=== PATIENT | female | born 1970 | race Caucasian/White ===

== ENCOUNTER 2018-02-28 20:00 | Emergency (ER) | payer BC ==
[~2018-02-28] VITALS: Ht 162.6 cm; Wt 88.5 kg
[2018-02-28 20:08] VITALS: BP 166/97
--- NOTE | 2018-02-28 21:23 | PHYS DOC ---
Past History Past Medical History: Asthma Past Surgical History: Smoking: Non-smoker Alcohol Use: None Drug Use: None Adult General Chief Complaint Chief Complaint: ANKLE PROBLEM HPI HPI 7-year-old female presents with right ankle pain. The patient was walking across room at home when she took a wrong step and inverted her ankle. She heard a popping sound and had immediate pain. She's been I will wear weight since that time. She has had rapid swelling over the lateral malleolus. There is no ecchymosis. He denies any other injuries. She has previous fracture to this ankle and sprained ligaments in the past. She denies fever or chills. Review of Systems Review of Systems Constitutional: Denies fever or chills [] Eyes: Denies change in visual acuity, redness, or eye pain [] HENT: Denies nasal congestion or sore throat [] Respiratory: Denies cough or shortness of breath [] Cardiovascular: No additional information not addressed in HPI [] GI: Denies abdominal pain, nausea, vomiting, bloody stools or diarrhea [] : Denies dysuria or hematuria [] Musculoskeletal: Right ankle pain[] Integument: Denies rash or skin lesions [] Neurologic: Denies headache, focal weakness or sensory changes [] Endocrine: Denies polyuria or polydipsia [] All other systems were reviewed and found to be within normal limits, except as documented in this note. Allergies Allergies Allergies Coded Allergies Type Severity Reaction Last Updated Verified No Known Drug Allergies 12/28/13 No Physical Exam Physical Exam Constitutional: Well developed, well nourished, no acute distress, non-toxic appearance. [] HENT: Normocephalic, atraumatic, bilateral external ears normal, oropharynx moist, no oral exudates, nose normal. [] Eyes: PERRLA, EOMI, conjunctiva normal, no discharge. [] Neck: Normal range of motion, no tenderness, supple, no stridor. [] Cardiovascular:Heart rate regular rhythm, no murmur [] Lungs & Thorax: Bilateral breath sounds clear to auscultation [] Abdomen: Bowel sounds normal, soft, no tenderness, no masses, no pulsatile masses. [] Skin: Warm, dry, no erythema, no rash. [] Back: No tenderness, no CVA tenderness. [] Extremities: Right leg and ankle significantly swollen, no ecchymosis, no erythema. Very tender to palpation. Range of motion decreased due to pain and swelling. Neurovascularly intact[] Neurologic: Alert and oriented X 3, normal motor function, normal sensory function, no focal deficits noted. [] Psychologic: Affect normal, judgement normal, mood normal. [] Current Patient Data Vital Signs Vital Signs Date Time Temp Pulse Resp B/P (MAP) Pulse Ox O2 Delivery O2 Flow Rate FiO2 02/28/18 20:08 97.6 EKG EKG [] Radiology/Procedures Radiology/Procedures [] Course & Med Decision Making Course & Med Decision Making Pertinent Labs and Imaging studies reviewed. (See chart for details) Patient has a significant sprain of the right ATFL ligament. I will place her in an air splint and put her on crutches. She'll follow-up with her PCP as needed. [] Dragon Disclaimer Dragon Disclaimer This electronic medical record was generated, in whole or in part, using a voice recognition dictation system. Departure Departure: Referrals: RAF BAZZI (PCP) TRACE LAZARO DO Feb 28, 2018 21:23
[2018-02-28] MEDS ORDERED: HYDR-971 PO (21:26)
[2018-02-28] MEDS ORDERED: HYDROcodone/APAP 5/325MG 1 TAB TABLET PO ONE (22:00)
--- NOTE | 2018-02-28 23:06 | RAD ---
History: Fall. Twisted ankle. Pain. Comparison: None. Findings: AP, lateral, and oblique views of the right ankle. Lateral ankle soft tissue swelling is seen. No acute fracture or dislocation is identified. Small Achilles tendon insertional enthesophyte is present. Impression: 1. No acute osseous traumatic injury identified. 2. Lateral ankle soft tissue swelling. Electronically signed by: Raúl Payne MD (02/28/2018 11:02 PM) [facility]
== END 2018-02-28 21:50 | disposition home or self-care (01) ==
LOC: ER 20:00
DX: S93.401A Sprain of unspecified ligament of right ankle, initial encounter (principal); J45.909 Unspecified asthma, uncomplicated; X50.9XXA Other and unspecified overexertion or strenuous movements or postures, initial encounter; Y93.01 Activity, walking, marching and hiking; Y99.8 Other external cause status; Y92.098 Other place in other non-institutional residence as the place of occurrence of the external cause
CPT/HCPCS: 73610; 99284

== ENCOUNTER 2019-09-28 18:27 | Emergency (ER) | payer BC ==
[~2019-09-28] VITALS: Ht 162.6 cm; Wt 96.1 kg
[~2019-09-28 18:27] MED LIST: HYDR-3165 PO
--- NOTE | 2019-09-28 18:47 | PHYS DOC ---
Past History Past Medical History: Asthma Past Surgical History: Smoking: Non-smoker Alcohol Use: None Drug Use: None Adult General Chief Complaint Chief Complaint: SHORTNESS OF BREATH HPI HPI Patient is a 49-year-old female who presented to ER today for evaluation of trouble breathing and wheezing since Wednesday. Patient has history of asthma, she started having trouble breathing on Wednesday. She went on a business trip to [facility], she has continued to have trouble breathing over there, she came home today with worsening trouble breathing. Patient took her DuoNeb treatment at home but did not get better so she came here for evaluation. Patient has some nonproductive cough. Patient denies any chest pain, no fever. She has history of asthma, hypertension. She denies any history of blood clot disorder, no history of coronary artery disease, no history of diabetes. Review of Systems Review of Systems All other ROS is negative unless otherwise noted in HPI Allergies Allergies Allergies Coded Allergies Type Severity Reaction Last Updated Verified No Known Drug Allergies 12/28/13 No Physical Exam Physical Exam See above Constitutional: Well developed, well nourished, no acute distress, non-toxic appearance. [] HENT: Normocephalic, atraumatic, bilateral external ears normal, oropharynx moist, no oral exudates, nose normal. [] Eyes: PERRLA, EOMI, conjunctiva normal, no discharge. [] Neck: Normal range of motion, no tenderness, supple, no stridor. [] Cardiovascular:Heart rate regular rhythm, no murmur [] Lungs & Thorax: Bilateral breath sounds with moderate wheezing in all lung wattesr, no respiratory distress. Abdomen: Bowel sounds normal, soft, no tenderness, no masses, no pulsatile masses. [] Skin: Warm, dry, no erythema, no rash. [] Back: No tenderness, no CVA tenderness. [] Extremities: No tenderness, no cyanosis, no clubbing, ROM intact, no edema. [] Neurologic: Alert and oriented X 3, normal motor function, normal sensory function, no focal deficits noted. [] Psychologic: Affect normal, judgement normal, mood normal. [] EKG EKG [] Radiology/Procedures Radiology/Procedures [][address] [address] IMAGING REPORT Signed PATIENT: CRICKET ACCOUNT: [id number] : 1970 LOCATION: ER AGE: 49 SEX: F EXAM STATUS: REG ER ORD. PHYSICIAN: ANTHONY SCALES DO REASON: soa, cough for 5 days PROCEDURE: CHEST PA & LATERAL EXAM: CHEST PA LATERAL INDICATION: Shortness of air, cough for 5 days. TECHNIQUE: PA and lateral views COMPARISON: None FINDINGS: The heart size is normal. The great vessels appear unremarkable. There is no hilar or mediastinal mass. The lungs are clear. There is no pleural effusion or pneumothorax. There are no significant osseous abnormalities. IMPRESSION: No active cardiopulmonary disease. Electronically signed by: Joyce Ordonez MD (09/28/2019 7:46 PM) [facility] DICTATED AND SIGNED BY: JOYCE ORDONEZ MD DATE: 09/28/191945 CC: ANTHONY SCALES DO; RAF BAZZI ~ Course & Med Decision Making Course & Med Decision Making Pertinent Labs and Imaging studies reviewed. (See chart for details) Patient is doing much better now, she has been an appointment with her doctor tomorrow morning. We'll discharge home with some prednisone. She has albuterol inhaler and DuoNeb treatment home already. Dragon Disclaimer Dragon Disclaimer This electronic medical record was generated, in whole or in part, using a voice recognition dictation system. Departure Departure: Impression: Primary Impression: Asthma attack Disposition: 01 HOME, SELF-CARE Condition: STABLE Referrals: RAF BAZZI (PCP) follow up with your doctor as scheduled for tomorrow. Patient Instructions: Asthma Attacks, Prevention, Asthma, Acute Bronchospasm Additional Instructions: Thank you for visiting our Emergency Department. We appreciate you trusting us with your care. If any additional problems come up don't hesitate to return to visit us. Please follow up with your primary care provider so they can plan additional care if needed and know about the problem that you had. If symptoms worsen come back to the Emergency Department. Any concerning symptoms that start such as chest pain, shortness of air, weakness or numbness on one side of the body, running high fevers or any other concerning symptoms return to the ER. Scripts Prednisone (PREDNISONE) 20 Mg Tablet 1 TAB PO DAILY for asthma, #10 TAB Prov: ANTHONY SCALES DO 09/28/19 ANTHONY SCALES DO Sep 28, 2019 18:47
[2019-09-28 19:15] LABS: BASO # 0.1 x10^3/uL (0.0-0.2); BASO % 1 % (0-3); EOS # 0.3 x10^3/uL (0.0-0.7); EOS % 3 % (0-3); HEMATOCRIT 40.8 % (36.0-47.0); LYMPH # 3.5 x10^3/uL (1.0-4.8); LYMPH % 28 % (24-48); MEAN CORPUSCULAR HEMOGLOBIN 32 pg (25-35); MEAN CORPUSCULAR HGB CONC 34 g/dL (31-37); MEAN CORPUSCULAR VOLUME 93 fL (79-100); MONO # 0.5 x10^3/uL (0.0-1.1); MONO % 4 % (0-9); NEUT # 8.1 x10^3uL (1.8-7.7); NEUT % 64 % (31-73); PLATELET COUNT 457 x10^3/uL (140-400); RED BLOOD COUNT 4.37 x10^6/uL (3.50-5.40); RED CELL DISTRIBUTION WIDTH 13.1 % (11.5-14.5); WHITE BLOOD COUNT 12.5 x10^3/uL (4.0-11.0)
[2019-09-28] MEDS ORDERED: IPRATRPIUM/ALBUTEROL 0.5/2.5MG 3 ML NEBU. NEB ONE (19:15)
[2019-09-28] MEDS ORDERED: methylPREDNISolone SOD SUCC PF 125 MG/2 ML VIAL. IV ONE (19:15)
[2019-09-28 19:25] LABS: CALCIUM 8.9 mg/dL (8.5-10.1); CREATININE 1.2 mg/dL (0.6-1.0); GFR 47.7; POTASSIUM 3.6 mmol/L (3.5-5.1)
[2019-09-28 19:30] LABS: ALBUMIN 3.9 g/dL (3.4-5.0); MAGNESIUM 1.8 mg/dL (1.8-2.4); TOTAL BILIRUBIN 0.2 mg/dL (0.2-1.0)
[2019-09-28] MEDS ORDERED: MAGNESIUM SULFATE 2GM 50 ML IV ONE ×2 (19:46→20:15)
--- NOTE | 2019-09-28 19:49 | RAD ---
EXAM: CHEST PA LATERAL INDICATION: Shortness of air, cough for 5 days. TECHNIQUE: PA and lateral views COMPARISON: None FINDINGS: The heart size is normal. The great vessels appear unremarkable. There is no hilar or mediastinal mass. The lungs are clear. There is no pleural effusion or pneumothorax. There are no significant osseous abnormalities. IMPRESSION: No active cardiopulmonary disease. Electronically signed by: Gregg Ordonez MD (09/28/2019 7:46 PM) [id number]
[2019-09-28] MEDS ORDERED: PRED20TA PO (20:34)
[2019-09-28 20:36] VITALS: BP 163/84
== END 2019-09-28 20:54 | disposition home or self-care (01) ==
LOC: ER 18:27
DX: J45.901 Unspecified asthma with (acute) exacerbation (principal)
CPT/HCPCS: 36415; 71046; 80053; 83735; 85025; 94640; 96365; 96375; 99284; J2930; J3475; J7620

== ENCOUNTER 2020-03-19 18:04 | Emergency (ER) | payer BC ==
[~2020-03-19] VITALS: Ht 162.6 cm; Wt 97.7 kg
[~2020-03-19 18:04] MED LIST changes: +PRED20TA PO
--- NOTE | 2020-03-19 18:38 | PHYS DOC ---
Past History Past Medical History: Anxiety, Asthma, Depression, Hypertension, Other Additional Past Medical Histor: Sleep, Past Surgical History: , Other Additional Past Surgical Histo: uterine ablation Smoking: Non-smoker Alcohol Use: None Drug Use: None Adult General Chief Complaint Chief Complaint: WEAKNESS/GENERALIZED HPI HPI Patient is a 49-year-old female who presents with URI-like symptoms. Patient has these symptoms chronically due to history of environmental allergies; however, they have acutely worsened over the last 1 week. Patient reports worsening rhinitis, dry nonproductive cough, and feelings of generalized weakness. Nothing known makes better, nothing known makes worse. Patient denies being in any pain. Admits shortness of breath but also has a history of COPD and asthma. Reports using pro-air rescue inhaler at home, states given her upper respiratory symptoms, she has used her pro-air with increased frequency recently. Patient had a recorded fever of greater than 100.4 today prompting h er to discuss case with her PCP, Dr. Erickson, who recommended patient visit our ER for formal evaluation. Of note, patient denies any known COVID positive contacts but does admit she has been traveling most weekends out of the local area to [employer] [place] [employer] and reports poor social distancing/hygiene practices at several locations Review of Systems Review of Systems Fourteen body systems of review of systems have been reviewed. See HPI for pertinent positives and negative responses, other aquino all other systems are negative, non-pertinent or non-contributory Allergies Allergies Allergies Coded Allergies Type Severity Reaction Last Updated Verified No Known Drug Allergies 12/28/13 No Physical Exam Physical Exam Constitutional: Well developed, well nourished, no acute distress, non-toxic appearance. [] HENT: Normocephalic, atraumatic, bilateral external ears normal, oropharynx dry, no oral exudates, nose normal. [] Eyes: PERRLA, EOMI, conjunctiva normal, no discharge. [] Neck: Normal range of motion, no tenderness, supple, no stridor. [] Cardiovascular:Heart rate tachycardic, regular rhythm, no murmur rubs or gallops [] Lungs & Thorax: Bilateral breath sounds clear to auscultation [] Abdomen: Bowel sounds normal, soft, no tenderness, no masses, no pulsatile masses. [] Skin: Warm, dry, no erythema, no rash. [] Back: No tenderness, no CVA tenderness. [] Extremities: No tenderness, no cyanosis, no clubbing, ROM intact, no edema. [] Neurologic: Alert and oriented X 3, normal motor function, normal sensory function, no focal deficits noted. [] Psychologic: Affect normal, judgement normal, anxious mood Current Patient Data Vital Signs Vital Signs Date Time Temp Pulse Resp B/P (MAP) Pulse Ox O2 Delivery O2 Flow Rate FiO2 03/19/20 18:17 98.2 102 16 188/99 (128) 97 Room Air Lab Results Laboratory Tests Test 03/19/20 18:40 White Blood Count 8.4 x10^3/uL Red Blood Count 4.60 x10^6/uL Hemoglobin 14.4 g/dL Hematocrit 41.9 % Mean Corpuscular Volume 91 fL Mean Corpuscular Hemoglobin 31 pg Mean Corpuscular Hemoglobin Concent 34 g/dL Red Cell Distribution Width 13.0 % Platelet Count 419 x10^3/uL Neutrophils (%) (Auto) 58 % Lymphocytes (%) (Auto) 35 % Monocytes (%) (Auto) 4 % Eosinophils (%) (Auto) 2 % Basophils (%) (Auto) 1 % Neutrophils # (Auto) 4.9 x10^3uL Lymphocytes # (Auto) 3.0 x10^3/uL Monocytes # (Auto) 0.4 x10^3/uL Eosinophils # (Auto) 0.1 x10^3/uL Basophils # (Auto) 0.1 x10^3/uL Sodium Level 137 mmol/L Potassium Level 3.5 mmol/L Chloride Level 101 mmol/L Carbon Dioxide Level 24 mmol/L Anion Gap 12 Blood Urea Nitrogen 15 mg/dL Creatinine 1.3 mg/dL Estimated GFR (Cockcroft-Gault) 43.5 BUN/Creatinine Ratio 12 Glucose Level 145 mg/dL Lactic Acid Level 2.0 mmol/L Calcium Level 9.0 mg/dL Total Bilirubin 0.5 mg/dL Aspartate Amino Transf (AST/SGOT) 13 U/L Alanine Aminotransferase (ALT/SGPT) 31 U/L Alkaline Phosphatase 110 U/L Troponin I Quantitative < 0.017 ng/mL Total Protein 7.8 g/dL Albumin 3.9 g/dL Albumin/Globulin Ratio 1.0 Current Medications Medications (Trade) Dose Ordered Sig/Santosh Route PRN Reason Start Time Stop Time Status Last Admin Dose Admin Sodium Chloride 1,000 ml @ 1,000 mls/hr Q1H IV 03/19/20 18:31 03/19/20 19:30 DC 03/19/20 18:54 EKG EKG EKG ordered and interpreted by myself at 1935 hrs. as normal sinus rhythm at 88 bpm, unremarkable intervals, no axis deviation, no ischemic findings, no STEMI Radiology/Procedures Radiology/Procedures PROCEDURE: PORTABLE CHEST 1V EXAM: AP View of the chest DATE: 03/19/2020 6:31 PM INDICATION: Reason: shortness of breath,chest pain, fever COMPARISON: 09/28/2019 FINDINGS: The heart is not enlarged. Mediastinal and hilar contours are normal. No focal parenchymal airspace opacity. No pleural effusion or pneumothorax. IMPRESSION: 1. No radiographic evidence for acute cardiopulmonary process. Electronically signed by: Richard Abad MD (03/19/2020 7:10 PM) [facility] Course & Med Decision Making Course & Med Decision Making Patient ambulatory on arrival, nontoxic-appearing and self ambulated to her ER room Comprehensive history and physical exam obtained, subsequent labs and imaging tests ordered Vital signs remarkable for tachycardia and hypertension, patient reports missing a.m. dose of BP meds. Reports decreased p.o. intake, tachycardia likely due to dehydration IV access obtained, IV NS administered with resolution of patient's tachycardia Patient's ED course reviewed, reviewed presenting symptoms, benign physical exam, and ordered studies in depth. No acute disease process at present Wells criteria for pulmonary embolism 1.5. This characterizes patient is low risk with 1.3 chance of PE. Discussed this finding and potential need for d- dimer/CT angios. Joint decision to defer Discussed most likely URI versus COVID-19 diagnosis. Unlikely acute asthma exacerbation or acute exacerbation COPD given history and physical exam findings. Could not exclude potential acute presentation of a more serious disease process ER course reviewed, patient able to tolerate p.o. intake, ambulatory, and returning to supportive home environment with no concerns for ability to care for self on discharge Strict return precautions discussed at length with good understanding by patient, all questions and concerns addressed prior to ER departure Patient discharged in stable condition home as a PUI with continued supportive care advised and close PCP follow-up in upcoming 3 to 10 days after findings of COVID-19 test results Advised Tylenol/NSAIDs for as needed fever control, pyhj-yhj-ucoaebf second- generation antihistamine and Flonase for URI-like symptoms/rhinitis Dragon Disclaimer Dragon Disclaimer This electronic medical record was generated, in whole or in part, using a voice recognition dictation system. Departure Departure: Impression: Primary Impression: Person under investigation for COVID-19 Additional Impressions: Viral syndrome History of environmental allergies Disposition: HOME/RESIDENCE PRIOR TO ADM Condition: STABLE Referrals: RAF BAZZI (PCP) Patient Instructions: Viral Syndrome Additional Instructions: Short You were evaluated in the Emergency Department today for a cough. Your evaluation suggests a viral infection such as Coronavirus. It is important that you continue to self isolate and practice good hygiene at home. Please follow up with your primary care physician as discussed. Return to the Emergency Department if you experience worsening cough, fever, shortness of breath, recurrent vomiting, lethargy, or any other concerning symptoms. Thank you for choosing us for your care. Usted fue evaluado en el Departamento de Emergencia hoy por tos. Salazar evaluacin sugiere joshua infeccin viral dameon el coronavirus. Es importante que contine aislndose y practicando joshua buena higiene en el hogar. Rhys un seguimiento con salazar mdico de atencin primaria dameon se discuti. Regrese al Departamento de Emergencias si experimenta un empeoramiento de la tos, fiebre, falta de aliento, vmitos recurrentes, letargo o cualquier otro sntoma relacionado. Aashish por elegir nosotros para salazar atencin. Home Care Instructions for Patients with Mild Respiratory Infection Most people with respiratory infections like colds, the flu, and Coronavirus Disease (COVID-19) will have mild illness and can get better with appropriate home care and without the need to see a provider. People who are elderly, , or have a weak immune system, or other medical problem are at higher risk of more serious illness or complications. It is recommended that they carefully monitor their symptoms closely and seek medical care early if their symptoms get worse. TREATMENT AND MEDICAL CARE Treatment There is no specific treatment for most viruses including those that that cause the common cold and those that cause COVID-19. Sometimes there is treatment for the viruses that cause influenza if given early. Antibiotics treat infections caused by bacteria, but they do not work against viruses.Most people recover on their own from these viruses, including COVID-19. Here are steps that you can take to help you get better: Rest Drink plenty of fluids Take jqeo-toc-fdbkfhm cold and flu medications to reduce fever and pain. Follow the instructions on the package, unless your doctor gave you instructions. Note that these medicines do not ``cure the illness and th erefore do not stop you from spreading germs. Children should not be given medication that contains aspirin (acetylsalicylic acid) because it can cause a rare but serious illness called Sincere syndrome. Medicines without aspirin include acetaminophen (Tylenol) and ibuprofen (Advil, Motrin). Children younger than age 2 should not be given any gkbf-slz-qqwrugr cold medications without first speaking with a doctor.Seeking Medical Care You should seek medical care if you are not getting better within a week, or if your symptoms get worse. If you are elderly, , have a weak immune system, or other medical problems, call your doctor right away. It is best to call ahead of time to discuss your symptoms, if possible. This may allow you to receive the advice you need by phone. By avoiding a visit to a healthcare facility, you protect yourself from getting a new infection and prote ct others from catching an infection from you. If you do visit a healthcare facility, put on a mask to protect other patients and staff. It is recommended that you seek medical care for serious symptoms, such as: People with potentially life-threatening symptoms should call 911. If possible, put on a facemask before emergency medical services arrive.PROTECTING OTHERS Follow the steps below to help prevent the disease from spreading to people in your home and community.Stay home when you are sick Stay home - do not go to work, school, or public areas. Stay home for at least 24 hours after your symptoms have gone away without the use of fever-reducing medicines. If you must leave home while you are sick, try to avoid using public transportation, ride-shares, and taxis. Wear a mask if possible. Separate yourself from other people and animals in your home Stay in a specific room and away from other people in your home as much as possible. Use a separate bathroom, if available. Try to stay at least 6 feet from others. Do not handle pets or other animals while you are sick. Cover your coughs and sneezes Cover your mouth and nose with a tissue when you cough or sneeze. Throw used tissues in a lined trash can; immediately wash your hands. Avoid sharing personal household items Do not share dishes, drinking glasses, cups, eating utensils, towels, or bedding with other people or pets in your home. Wash them thoroughly with soap and water after use. Clean your hands often Wash your hands often with soap and water for at least 20 seconds. If soap and water are not available, clean your hands with an alcohol-based hand retail product advisor that contains at least 60% alcohol, covering all surfaces of your hands and rubbing them together until they feel dry. Use soap and water if your hands are visibly dirty. Clean all ``high-touch surfaces every day High touch surfaces include counters, tabletops, doorknobs, bathroom fixtures, toilets, phones, keyboards, tablets, and bedside tables. Also, clean any surfaces that may have body fluids on them. Use a household cleaning spray or wipe, according to the product label instructions. COVID-19 (Novel Coronavirus) FAQs for Inquiring Patients What do you do if you are worried that you have been exposed to COVID-19 but are without any symptoms? If you develop symptoms that may indicate an infection, contact your physician. These include fever, cough, and shortness of breath. Testing is not available for asymptomatic individuals, regardless of travel history. To reduce the chance of getting sick use general infection prevention measures such as hand washing, covering your mouth and nose when you cough or sneeze and discarding any tissues carefully, and staying home when you are sick.Can exceptions be made for patients who are really worried and want to be tested? Presently testing is only available through the [facility] Department of Public Health and Centers for Disease Control and Prevention. Only patients who meet the updated COVID-19 PUI definition may be tested. We do not control or set the PUI definition or evaluation criteria. We are unable to provide testing to patients who do not meet the strict criteria. Should patients cancel or postpone an upcoming trip? The decision about travel is personal and should be made in the context of a persons underlying health conditions, reason for travel and necessity of travel. Travel insurance generally does not cover cancellations due to concerns of infectious disease outbreaks. The Center for Disease Control has a section on travel notices. Situations are changing frequently and you should monitor the site for updates. Should situations change rapidly in a foreign country while they are traveling, you could be subject to quarantine or restrictions upon return to the [facility]. It is best to have a plan on how to return urgently if needed during a trip abroad. Because of how air circulates and is filtered on airplanes, most viruses do not spread easily on airplanes. CDC does not recommend use of facemasks during air travel.What other general precautions are advised? Patients should be instructed to: Avoid close contact with people who are sick. Avoid touching your eyes, nose and mouth. Stay home from work or school when they are sick. If you have a fever, you should remain home until 24 hours after fever resolves. Clean and disinfect frequently touched objects and surfaces using a regular household cleaning spray or wipe. Sneeze/cough into their elbow, not your hand. Practice frequent hand hygiene with soap and water (at least 20 seconds) or alcohol-based hand rub. Consider avoiding crowded places or mass gatherings, especially if you are immunocompromised or have chronic lung disease. There is no evidence to support transmission of COVID-19 from goods imported from [place]. Are there any special precautions that are recommended if I am ? There is not yet any information available about the susceptibility of women to COVID-19. As a general rule, women may be more susceptible to viral respiratory infections and at risk for more severe illness. The CDC guidance for COVID-19 and has answers to questions about transmission during delivery, as well as other situations. Should food, water, or medications be stockpiled? Should people telecommute? The CDC has excellent information on this. Please visit the CDCs guidance for getting your household ready for COVID-19. What should I do if I start feeling sick at work? And what should the workplace do for anyone exposed? Anyone who is sick with a fever and cough should stay home from work until at least 24 hours after resolution of fever, regardless of concerns for COVID-19. It is still influenza (flu) season and influenza remains far more common. Justification of Admission: Justification of Admission: Justification of Admission Dx: N/A Problem Qualifiers ELLA DIGGS DO Mar 19, 2020 18:38
[2020-03-19] MEDS: IV NORMAL SALINE 1,000ML 1,000 ML IV SCH (18:54)
[2020-03-19 19:01] LABS: BASO # 0.1 x10^3/uL (0.0-0.2); BASO % 1 % (0-3); EOS # 0.1 x10^3/uL (0.0-0.7); EOS % 2 % (0-3); HEMATOCRIT 41.9 % (36.0-47.0); HEMOGLOBIN 14.4 g/dL (12.0-15.5); LYMPH % 35 % (24-48); MEAN CORPUSCULAR HEMOGLOBIN 31 pg (25-35); MEAN CORPUSCULAR HGB CONC 34 g/dL (31-37); MEAN CORPUSCULAR VOLUME 91 fL (79-100); MONO # 0.4 x10^3/uL (0.0-1.1); MONO % 4 % (0-9); NEUT # 4.9 x10^3uL (1.8-7.7); NEUT % 58 % (31-73); PLATELET COUNT 419 x10^3/uL (140-400); WHITE BLOOD COUNT 8.4 x10^3/uL (4.0-11.0)
--- NOTE | 2020-03-19 19:13 | RAD ---
EXAM: AP View of the chest DATE: 03/19/2020 6:31 PM INDICATION: Reason: shortness of breath,chest pain, fever COMPARISON: 09/28/2019 FINDINGS: The heart is not enlarged. Mediastinal and hilar contours are normal. No focal parenchymal airspace opacity. No pleural effusion or pneumothorax. IMPRESSION: 1. No radiographic evidence for acute cardiopulmonary process. Electronically signed by: Richard Abad MD (03/19/2020 7:10 PM) [facility]
[2020-03-19 19:14] LABS: CREATININE 1.3 mg/dL (0.6-1.0); GFR 43.5; POTASSIUM 3.5 mmol/L (3.5-5.1)
[2020-03-19 19:17] LABS: ALBUMIN 3.9 g/dL (3.4-5.0); TOTAL BILIRUBIN 0.5 mg/dL (0.2-1.0); TOTAL PROTEIN 7.8 g/dL (6.4-8.2)
[2020-03-19 19:18] VITALS: BP 158/97
--- NOTE | 2020-03-19 23:25 | EKG ---
[address] [address] Test Date: 2020-03-19 Test Time: 19:31:46 Pat Name: CHRSI HARLEY Department: Room: Gender: F It Sales Representative: : 1970 Requested By: ELLA DIGGS Order Number: [id number] Reading MD: Measurements Intervals [place] Rate: 88 P: 46 NM: 150 QRS: 13 QRSD: 78 T: 30 QT: 366 QTc: 446 Interpretive Statements SINUS RHYTHM NORMAL ECG RI6.02 No previous ECG available for comparison
--- NOTE | 2020-03-22 08:52 | NUR ---
IP: attempt to notify patient of COVID result, left message to return call.
--- NOTE | 2020-03-22 11:31 | NUR ---
IP: discussed COVID test results with patient.
== END 2020-03-19 20:02 | disposition home or self-care (01) ==
LOC: ER 18:04
DX: B34.9 Viral infection, unspecified (principal); F41.9 Anxiety disorder, unspecified; J45.909 Unspecified asthma, uncomplicated; F32.9 Major depressive disorder, single episode, unspecified; I10 Essential (primary) hypertension; Z20.828 Contact with and (suspected) exposure to other viral communicable diseases
CPT/HCPCS: 36415; 71045; 80053; 83605; 84484; 85025; 87040; 93005; 96360; 99285; J7030; U0003

== ENCOUNTER 2020-10-07 14:45 | Emergency (ER) | payer BC ==
[~2020-10-07] VITALS: Ht 162.6 cm; Wt 97.7 kg
[2020-10-07 14:58] VITALS: BP 158/97
[2020-10-07 16:02] LABS: BARBITURATES NEG (NEG); BENZODIAZEPINES POS (NEG); CANNABINOIDS NEG (NEG); COCAINE NEG (NEG); METHADONE NEG (NEG); OPIATES NEG (NEG); PHENCYCLIDINE NEG (NEG)
[2020-10-07 16:08] LABS: AMPHETAMINE/METHAMPHETAMINE NEG (NEG)
[2020-10-07 16:09] LABS: BILIRUBIN,URINE NEG (NEG); CLARITY,URINE CLEAR; COLOR,URINE COLORLESS; GLUCOSE,URINE NEG (NEG)
[2020-10-07 16:10] LABS: BACTERIA,URINE 0 /HPF (0-FEW); NITRITE,URINE NEG (NEG); RBC,URINE 0 /HPF (0-2); UROBILINOGEN,URINE 0.2 mg/dL (0.2 mg/dL); WBC,URINE 0 /HPF (0-4)
--- NOTE | 2020-10-07 16:15 | PHYS DOC ---
Past History Past Medical History: Anxiety, Asthma, Depression, Hypertension, Other Additional Past Medical Histor: Sleep, Past Surgical History: , Other Additional Past Surgical Histo: uterine ablation Smoking: Non-smoker Alcohol Use: None Drug Use: None General Adult EDM: Chief Complaint: OVERDOSE HPI: HPI: Patient is a 50-year-old female coming in via EMS for possible medication overdose. EMS was called by patient's daughter who stated she had a difficult time waking her mom up and she was very confused. Patient states that she was in deep sleep as of her day off. Denies any ingestions. Denies any history of suicide attempts, medication misuse, alcohol or drug use. Family called poison control who notified the emergency department prior to patient's arrival. On arrival patient is awake and alert. She states that she is not taking any extra doses of her medications. States she otherwise has been well. Patient evaluated by PAT and deemed appropriate for safety plan. Review of Systems: Review of Systems: Constitutional: Denies fever or chills Eyes: Denies change in visual acuity HENT: Denies nasal congestion or sore throat Respiratory: Denies cough or shortness of breath Cardiovascular: Denies chest pain or edema GI: Denies abdominal pain, nausea, vomiting, bloody stools or diarrhea : Denies dysuria Musculoskeletal: Denies back pain or joint pain Integument: Denies rash Neurologic: Denies headache, focal weakness or sensory changes Endocrine: Denies polyuria or polydipsia Lymphatic: Denies swollen glands Psychiatric: Denies depression or anxiety Allergies: Allergies: Allergies Coded Allergies Type Severity Reaction Last Updated Verified No Known Drug Allergies 12/28/13 No Physical Exam: PE: Constitutional: Well developed, well nourished, no acute distress, non-toxic appearance. [] HENT: Normocephalic, atraumatic, bilateral external ears normal, oropharynx moist, no oral exudates, nose normal. [] Eyes: PERRLA, EOMI, conjunctiva normal, no discharge. [] Neck: Normal range of motion, no tenderness, supple, no stridor. [] Cardiovascular:Heart rate regular rhythm, no murmur [] Lungs & Thorax: Bilateral breath sounds clear to auscultation [] Abdomen: Bowel sounds normal, soft, no tenderness, no masses, no pulsatile masses. [] Skin: Warm, dry, no erythema, no rash. [] Back: No tenderness, no CVA tenderness. [] Extremities: No tenderness, no cyanosis, no clubbing, ROM intact, no edema. [] Neurologic: Alert and oriented X 3, normal motor function, normal sensory function, no focal deficits noted. [] Psychologic: Affect normal, judgement normal, mood normal. [] Current Patient Data: Labs: Laboratory Tests Test 10/07/20 15:02 Urine Collection Type Unknown Urine Color Colorless Urine Clarity Clear Urine pH 5.5 Urine Specific [place] <=1.005 Urine Protein Neg (NEG-TRACE) Urine Glucose (UA) Neg mg/dL (NEG) Urine Ketones (Stick) Neg mg/dL (NEG) Urine Blood Neg (NEG) Urine Nitrite Neg (NEG) Urine Bilirubin Neg (NEG) Urine Urobilinogen Dipstick 0.2 mg/dL (0.2 mg/dL) Urine Leukocyte Esterase Neg (NEG) Urine RBC 0 /HPF (0-2) Urine WBC 0 /HPF (0-4) Urine Squamous Epithelial Cells None /LPF Urine Bacteria 0 /HPF (0-FEW) Urine Opiates Screen Neg (NEG) Urine Methadone Screen Neg (NEG) Urine Barbiturates Neg (NEG) Urine Phencyclidine Screen Neg (NEG) Urine Amphetamine/Methamphetamine Neg (NEG) Urine Benzodiazepines Screen Pos (NEG) Urine Cocaine Screen Neg (NEG) Urine Cannabinoids Screen Neg (NEG) Urine Ethyl Alcohol Neg (NEG) Vital Signs: Vital Signs Date Time Temp Pulse Resp B/P (MAP) Pulse Ox O2 Delivery O2 Flow Rate FiO2 10/07/20 14:58 97.9 99 16 158/97 (117) 98 Room Air EKG: EKG: Normal sinus rhythm, heart rate 100 bpm, normal axis, no ST elevation or depression, normal intervals. No ectopy. [] Radiology/Procedures: Radiology/Procedures: [] Heart Score: Risk Factors: Risk Factors: DM, Current or recent (<one month) smoker, HTN, HLP, family history of CAD, obesity. Risk Scores: Score 0 - 3: 2.5% MACE over next 6 weeks - Discharge Home Score 4 - 6: 20.3% MACE over next 6 weeks - Admit for Clinical Observation Score 7 - 10: 72.7% MACE over next 6 weeks - Early Invasive Strategies Course & Med Decision Making: Course & Med Decision Making Labs unremarkable. Safety plan established Dragon Disclaimer: Parris Disclaimer: This electronic medical record was generated, in whole or in part, using a voice recognition dictation system. Departure Departure: Impression: Primary Impression: Encounter for medical screening examination Disposition: 01 DC HOME SELF CARE/HOMELESS Condition: STABLE Referrals: RAF BAZZI (PCP) Patient Instructions: Basics of Medication Management Additional Instructions: Follow-up with: The [address] [id number] TELLO ROACH MD Oct 07, 2020 16:15
[2020-10-07 16:32] LABS: BASO # 0.1 x10^3/uL (0.0-0.2); BASO % 1 % (0-3); EOS # 0.1 x10^3/uL (0.0-0.7); EOS % 2 % (0-3); HEMATOCRIT 42.2 % (36.0-47.0); HEMOGLOBIN 14.3 g/dL (12.0-15.5); LYMPH # 2.6 x10^3/uL (1.0-4.8); LYMPH % 27 % (24-48); MEAN CORPUSCULAR HEMOGLOBIN 31 pg (25-35); MEAN CORPUSCULAR HGB CONC 34 g/dL (31-37); MEAN CORPUSCULAR VOLUME 91 fL (79-100); MONO # 0.4 x10^3/uL (0.0-1.1); MONO % 4 % (0-9); NEUT # 6.3 x10^3uL (1.8-7.7); NEUT % 67 % (31-73); PLATELET COUNT 431 x10^3/uL (140-400); RED BLOOD COUNT 4.65 x10^6/uL (3.50-5.40); RED CELL DISTRIBUTION WIDTH 12.9 % (11.5-14.5); WHITE BLOOD COUNT 9.4 x10^3/uL (4.0-11.0)
[2020-10-07 16:43] LABS: CALCIUM 9.4 mg/dL (8.5-10.1); CREATININE 1.4 mg/dL (0.6-1.0); GFR 39.8; POTASSIUM 4.2 mmol/L (3.5-5.1)
[2020-10-07 16:47] LABS: ACETAMIN < 2.0 mcg/mL (10-30); ETHANOL < 10 mg/dL (0-10)
[2020-10-07 16:49] LABS: ALBUMIN 3.9 g/dL (3.4-5.0); ALBUMIN/GLOBULIN RATIO 0.9 (1.0-1.7); TOTAL BILIRUBIN 0.3 mg/dL (0.2-1.0); TOTAL PROTEIN 8.2 g/dL (6.4-8.2)
[2020-10-07 17:35] LABS: SALIC < 2.8 mg/dL (2.8-20.0)
== END 2020-10-07 17:18 | disposition home or self-care (01) ==
LOC: ER 14:45
DX: R41.0 Disorientation, unspecified (principal); J45.909 Unspecified asthma, uncomplicated; I10 Essential (primary) hypertension
CPT/HCPCS: 36415; 80053; 80307; 80329; 81001; 85025; 99283; G0480

== ENCOUNTER 2021-01-30 15:26 | Emergency (ER) | payer BC ==
[~2021-01-30] VITALS: Ht 162.6 cm; Wt 97.7 kg
[2021-01-30] MEDS ORDERED: predniSONE 20 MG TABLET PO ONE (15:45)
[2021-01-30] MEDS ORDERED: ALBUTEROL SULFATE 2.5 MG/3 ML NEBU. NEB ONE ×3 (15:45→18:15)
[2021-01-30] MEDS ORDERED: PRED20TA PO (16:08)
--- NOTE | 2021-01-30 16:08 | PHYS DOC ---
Past History Past Medical History: Anxiety, Asthma, Depression, Hypertension, Other Additional Past Medical Histor: Sleep, Past Surgical History: , Other Additional Past Surgical Histo: uterine ablation Smoking: Non-smoker Alcohol Use: None Drug Use: None General Adult EDM: Chief Complaint: SHORTNESS OF BREATH HPI: HPI: Patient is a 50-year-old female who presents with asthma exacerbation. Patient states that she has been using her inhaler and given herself 3 breathing treatments today with no relief. Patient states "this happens usually around this time a year". Denies fever. Patient has a history of asthma and hypertension. Review of Systems: Review of Systems: Constitutional: Denies fever or chills Eyes: Denies change in visual acuity HENT: Denies nasal congestion or sore throat Respiratory: Reports cough and shortness of breath Cardiovascular: Denies chest pain or edema GI: Denies abdominal pain, nausea, vomiting, bloody stools or diarrhea : Denies dysuria Musculoskeletal: Denies back pain or joint pain Integument: Denies rash Neurologic: Denies headache, focal weakness or sensory changes Endocrine: Denies polyuria or polydipsia Lymphatic: Denies swollen glands Psychiatric: Denies depression or anxiety Current Medications: Current Meds: Current Medications Medications (Trade) Dose Ordered Sig/Santosh Start Time Stop Time Status Last Admin Dose Admin Albuterol Sulfate (Ventolin) 2.5 mg 1X ONCE 01/30/21 15:45 01/30/21 15:46 DC 01/30/21 15:52 2.5 MG Prednisone (Prednisone) 60 mg 1X ONCE 01/30/21 15:45 01/30/21 15:46 DC Allergies: Allergies: Allergies Coded Allergies Type Severity Reaction Last Updated Verified No Known Drug Allergies 12/28/13 No Physical Exam: PE: Constitutional: Well developed, well nourished, no acute distress, non-toxic appearance. [] HENT: Normocephalic, atraumatic, bilateral external ears normal, oropharynx moist, no oral exudates, nose normal. [] Eyes: PERRLA, EOMI, conjunctiva normal, no discharge. [] Neck: Normal range of motion, no tenderness, supple, no stridor. [] Cardiovascular:Heart rate regular rhythm, no murmur [] Lungs & Thorax: Wheezing bilaterally Abdomen: Bowel sounds normal, soft, no tenderness, no masses, no pulsatile masses. [] Skin: Warm, dry, no erythema, no rash. [] Back: No tenderness, no CVA tenderness. [] Extremities: No tenderness, no cyanosis, no clubbing, ROM intact, no edema. [] Neurologic: Alert and oriented X 3, normal motor function, normal sensory function, no focal deficits noted. [] Psychologic: Affect normal, judgement normal, mood normal. [] Current Patient Data: Vital Signs: Vital Signs Date Time Temp Pulse Resp B/P (MAP) Pulse Ox O2 Delivery O2 Flow Rate FiO2 01/30/21 15:52 97 Room Air 01/30/21 15:39 108 24 169/101 (123) EKG: EKG: [] Radiology/Procedures: Radiology/Procedures: [] Heart Score: C/O Chest Pain: No Risk Factors: Risk Factors: DM, Current or recent (<one month) smoker, HTN, HLP, family history of CAD, obesity. Risk Scores: Score 0 - 3: 2.5% MACE over next 6 weeks - Discharge Home Score 4 - 6: 20.3% MACE over next 6 weeks - Admit for Clinical Observation Score 7 - 10: 72.7% MACE over next 6 weeks - Early Invasive Strategies Course & Med Decision Making: Course & Med Decision Making Pertinent Labs and Imaging studies reviewed. (See chart for details) [] 50-year-old female who presents with an asthma exacerbation. Patient states she has been using her inhaler and had to have 3 breathing treatments so far today. Patient denies any relief at home. Patient given breathing treatment and prednisone. Patient reports symptoms have improved after breathing treatment. Patient is reporting tightness in her chest again. Second breathing treatment ordered. Will reassess patient. After reassessing patient she still complaining of some shortness of breath but wheezing has improved. Third breathing treatment administered. Chest x-ray was ordered to rule out acute abnormality. Chest x-ray is negative for any acute abnormalities. Patient given DuoNeb treatment. Patient reports that she feels much better. Patient given strict return precautions. Patient has her albuterol and DuoNeb treatments at home. Patient is hemodynamically stable. 97% room air. Patient is appreciative and okay with discharge plan. Parris Disclaimer: Parris Disclaimer: This electronic medical record was generated, in whole or in part, using a voice recognition dictation system. Departure Departure: Impression: Primary Impression: Asthma exacerbation Qualified Codes: J45.41 - Moderate persistent asthma with (acute) exacerbation Disposition: HOME / SELF CARE / HOMELESS Condition: STABLE Referrals: RAF BAZZI (PCP) Patient Instructions: Asthma, Adult, [id number] Additional Instructions: You were seen in the emergency room for asthma exacerbation. You were given a breathing treatment in the emergency room along with prednisone. Sending you home with a prescription for steroids. Please return emergency room if you have worsening symptoms or concerns. EMERGENCY DEPARTMENT GENERAL DISCHARGE INSTRUCTIONS Thank you for coming to [facility] (ED) today and trusting us with you care. We trust that you had a positivie experience in our Emergency Department. If you wish to speak to the department management, you may call the director at [phone]. YOUR FOLLOW UP INSTRUCTIONS ARE FOLLOWS: 1. Do you have a private Doctor? If you do not have a private doctor, please ask for a resource list of physicians or clinics that may be able to assist you with follow up care. 2. The Emergency Physician has interpreted your x-rays. The X-Ray specialist will also review them. If there is a change in the findings, you will be notified in 48 hours when at all possible. 3. A lab test or culture has been done, your results will be reviewed and you will be notified if you need a change in treatment. ADDITIONAL INSTRUCTIONS AND INFORMATION: 1. Your care today has been supervised by a physician who is specially trained in emergency care. Many problems require more than one evaluation for a complete diagnosis and treatment. We recommend that you schedule your follow up appointment as recommended to ensure complete treatment of you illness or injury. If you are unable to obtain follow up care and continue to have a problem, or if your condition worsens, we recommend that you return to the ED. 2. We are not able to safely determine your condition over the phone nor are we able to give sound medical advice over the phone. For these safety reasons, if you call for medical advice we will ask you to come to the ED for further evaluation. 3. If you have any questions regarding these discharge instructions please call the ED at [phone]. SAFETY INFORMATION: In the interest of safety, wellness, and injury prevention; we encourage you to wear your sealbelt, if you smoke; quite smoking, and we encourage family to use a protective helmet for bicycling and other sporting events that present an increased risk for head injury. IF YOUR SYMPTOMS WORSEN OR NEW SYMPTOMS DEVELOP, OR YOU HAVE CONCERNS ABOUT YOUR CONDITION; OR IF YOUR CONDITION WORSENS WHILE YOU ARE WAITING FOR YOUR FOLLOW UP APPOINTMENT; EITHER CONTACT YOUR PRIMARY CARE DOCTOR, THE PHYSICIAN WHOSE NAME AND NUMBER YOU WERE GIVEN, OR RETURN TO THE ED IMMEDIATELY. Scripts Prednisone (PREDNISONE) 20 Mg Tablet 3 TAB PO DAILY for allergies for 4 Days, #12 TAB Prov: UTE GONZALEZ APRN 01/30/21 UTE GONZALEZ APRN Jan 30, 2021 16:08
--- NOTE | 2021-01-30 18:23 | RAD ---
XR CHEST 1V History: Reason: sob / Spl. Instructions: / History: Comparison: March 19, 2020 Findings: No consolidation or pleural effusion. Normal heart size. No pneumothorax. Impression: 1. No acute cardiopulmonary process. Electronically signed by: Godfrey Almendarez DO (01/30/2021 6:20 PM) [facility]
[2021-01-30] MEDS ORDERED: IPRATRPIUM/ALBUTEROL 0.5/2.5MG 3 ML NEBU. NEB ONE (19:15)
[2021-01-30 20:06] VITALS: BP 169/107
== END 2021-01-30 20:05 | disposition home or self-care (01) ==
LOC: ER 15:26
DX: J45.901 Unspecified asthma with (acute) exacerbation (principal); I10 Essential (primary) hypertension
CPT/HCPCS: 71045; 94640; 99285; J7512; J7613

== ENCOUNTER 2021-07-19 10:48 | Emergency (ER) | payer BC ==
[~2021-07-19] VITALS: Ht 162.6 cm; Wt 100.8 kg
[2021-07-19 10:48] VITALS: BP 148/82
[2021-07-19] MEDS ORDERED: IPRATRPIUM/ALBUTEROL 0.5/2.5MG 3 ML NEBU. ONE (10:53)
[2021-07-19] MEDS ORDERED: predniSONE 20 MG TABLET PO ONE (11:00)
--- NOTE | 2021-07-19 11:01 | PHYS DOC ---
Past History Past Medical History: Anxiety, Asthma, Depression, Hypertension, Other Additional Past Medical Histor: Sleep, (SANDY MARKS PROCESSING SPEC) Past Surgical History: , Other Additional Past Surgical Histo: uterine ablation (SANDY MARKS PROCESSING SPEC) Smoking: Non-smoker Alcohol Use: None Drug Use: None (SANDY MARKS PROCESSING SPEC) Adult General Chief Complaint Chief Complaint: ASTHMA HPI HPI Patient is a 51-year-old female patient with history of anxiety, asthma, depression, who presents to the ED today complaining of wheezing and shortness of breath, symptoms began 3 days ago. Patient denies any fever. Reports coughing. Patient states several family members have influenza right now. (SANDY MARKS PROCESSING SPEC) Review of Systems Review of Systems Constitutional: Denies fever or chills [] Eyes: Denies change in visual acuity, redness, or eye pain [] HENT: Denies nasal congestion or sore throat [] Respiratory: Reports cough and wheezing, denies shortness of breath [] Cardiovascular: No additional information not addressed in HPI [] GI: Denies abdominal pain, nausea, vomiting, bloody stools or diarrhea [] : Denies dysuria or hematuria [] Musculoskeletal: Denies back pain or joint pain [] Integument: Denies rash or skin lesions [] Neurologic: Denies headache, focal weakness or sensory changes [] All other systems were reviewed and found to be within normal limits, except as documented in this note. (SANDY MARKS PROCESSING SPEC) Current Medications Current Medications Current Medications Medications (Trade) Dose Ordered Sig/Santosh Start Time Stop Time Status Last Admin Dose Admin Albuterol/ Ipratropium (Duoneb) 3 ml STK-MED ONCE 07/19/21 10:53 07/19/21 10:53 DC (SANDY MARKS PROCESSING SPEC) Allergies Allergies Allergies Coded Allergies Type Severity Reaction Last Updated Verified No Known Drug Allergies 12/28/13 No (SANDY MARKS PROCESSING SPEC) Physical Exam Physical Exam Constitutional: Well developed, well nourished, no acute distress, non-toxic appearance. [] HENT: Normocephalic, atraumatic, bilateral external ears normal, oropharynx moist, no oral exudates, nose normal. [] Eyes: PERRLA, EOMI, conjunctiva normal, no discharge. [] Neck: Normal range of motion, no tenderness, supple, no stridor. [] Cardiovascular:Heart rate regular rhythm, no murmur [] Lungs & Thorax: Diffuse wheezing throughout the lung bases Abdomen: Bowel sounds normal, soft, no tenderness, no masses, no pulsatile masses. [] Skin: Warm, dry, no erythema, no rash. [] Back: No tenderness, no CVA tenderness. [] Extremities: No tenderness, no cyanosis, no clubbing, ROM intact, no edema. [] Neurologic: Alert and oriented X 3, normal motor function, normal sensory function, no focal deficits noted. [] Psychologic: Affect normal, judgement normal, mood normal. [] (SANDY MARKS APRN) Current Patient Data Vital Signs Vital Signs Date Time Temp Pulse Resp B/P (MAP) Pulse Ox O2 Delivery O2 Flow Rate FiO2 07/19/21 10:58 94 Room Air (SANDY MARKS APRN) EKG EKG [] (SANDY MARKS APRN) Radiology/Procedures Radiology/Procedures []PROCEDURE: CHEST PA & LATERAL EXAMINATION: Chest radiograph. VIEWS: 2 COMPARISON: 01/30/2021 INDICATION:51 years, Female, cough. FINDINGS: Normal cardiomediastinal silhouette. No focal consolidation. No pleural effusion or pneumothorax. No acute osseous process. IMPRESSION: No acute cardiopulmonary process. Electronically signed by: Deena Brooke MD (07/19/2021 12:16 PM) [facility] DICTATED AND SIGNED BY: DEENA BROOKE MD DATE: 07/19/21 1215 CC: SANDY MARKS APRN; RAF BAZZI PA ~MTH0 0 (SANDY MARKS APRN) Heart Score C/O Chest Pain: N/A Risk Factors: Risk Factors: DM, Current or recent (<one month) smoker, HTN, HLP, family history of CAD, obesity. Risk Scores: Risk Factors: DM, Current or recent (<one month) smoker, HTN, HLP, family history of CAD, obesity. (SANDY MARKS APRN) Course & Med Decision Making Course & Med Decision Making Pertinent Labs and Imaging studies reviewed. (See chart for details) This is a 59-year-old female patient presenting to the ED today with cough and wheezing, symptoms began 3 days ago. Patient arrived in the ED with symptoms, was given a DuoNeb treatment and prednisone, breathing has improved. Negative influenza A&B. Chest x-ray interpreted by radiologist as negative for any acute findings, discharged home. Follow-up with PCP in 1 week. Provided return precautions. (SANDY MARKS APRN) Dragon Disclaimer Dragon Disclaimer This electronic medical record was generated, in whole or in part, using a voice recognition dictation system. (SANDY MARKS APRN) Attending Co-Sign The patient was seen and interviewed as well as examined at the bedside. The chart was reviewed. The case was discussed. Agree with the plan of care. (TRACE LAZARO DO) Departure Departure: Impression: Primary Impression: Asthma exacerbation Disposition: HOME / SELF CARE / HOMELESS Condition: STABLE Referrals: RAF BAZZI (PCP) follow up next week Patient Instructions: Asthma, Adult Additional Instructions: You were evaluated in the emergency room, your chest x-ray is negative for any acute findings, your influenza test is negative. Use the prescribed medications as ordered. Follow-up with your doctor next week. Come back to the ED at any point symptoms worsen Scripts Albuterol Sulfate (VENTOLIN HFA INHALER) 18 Gm Hfa.aer.ad 1 PUFF IH PRN Q4HRS PRN for FOR ASTHMA, #1 EACH 0 Refills Prov: SANDY MARKS APRN 07/19/21 Prednisone (PREDNISONE) 50 Mg Tablet 1 TAB PO DAILY, #5 TAB Prov: SANDY MARKS APRN 07/19/21 Problem Qualifiers Primary Impression: Asthma exacerbation Asthma severity: mild Asthma persistence: intermittent Qualified Codes: J45.21 - Mild intermittent asthma with (acute) exacerbation SANDY MARKS APRN Jul 19, 2021 11:00 TRACE LAZARO DO Jul 19, 2021 16:06
[2021-07-19] MEDS ORDERED: IPRATRPIUM/ALBUTEROL 0.5/2.5MG 3 ML NEBU. NEB ONE (12:00)
--- NOTE | 2021-07-19 12:18 | RAD ---
EXAMINATION: Chest radiograph. VIEWS: 2 COMPARISON: 01/30/2021 INDICATION:51 years, Female, cough. FINDINGS: Normal cardiomediastinal silhouette. No focal consolidation. No pleural effusion or pneumothorax. No acute osseous process. IMPRESSION: No acute cardiopulmonary process. Electronically signed by: Sangeeta Brooke MD (07/19/2021 12:16 PM) [facility]
[2021-07-19 12:20] LABS: INFLUENZA A PATIENT NEGATIVE (NEGATIVE); INFLUENZA B PATIENT NEGATIVE (NEGATIVE)
[2021-07-19] MEDS ORDERED: ALBU2.5V8 IH (12:32)
[2021-07-19] MEDS ORDERED: PRED50TA PO (12:32)
== END 2021-07-19 12:45 | disposition home or self-care (01) ==
LOC: ER 10:48
DX: J45.901 Unspecified asthma with (acute) exacerbation (principal); I10 Essential (primary) hypertension
CPT/HCPCS: 71046; 87804; 94640; 99284; J7512